=== PATIENT | male | born 1990 | race African-American/Black ===

== ENCOUNTER 2019-01-04 10:32 | Inpatient (IN) | payer MEDICAID ==
[~2019-01-04] VITALS: Ht 177.8 cm; Wt 85.3 kg
--- NOTE | 2019-01-04 10:47 | NUR ---
ED Nurse Note: PT WALKED IN TO ER TODAY FROM HOME. AOX4. PT C/O RIGHT LOWER GUM PAIN, 6/10 X LAST NIGHT. PT DENIES ANY DRAINAGE OR BLEEDING. ON ASSESSMENT, OBVIOUS SWELLING NOTED TO GUM. PT ALSO FEBRILE - ORAL TEMP 101.4F. DR BO AWARE. PT STATES HE TOOK AN ANTIBIOTIC AND NORCO PRIOR TO COMING IN TODAY BUT ISN'T SURE OF WHICH SPECIFIC ANTIBIOTIC.
[2019-01-04 10:50] VITALS: BP 154/86
[2019-01-04] MEDS ORDERED: Isovue-300 100ml vial INJ PRN ×2 (11:00→12:30)
[2019-01-04] MEDS ORDERED: Clindamycin 600mg 50 ML IVPB ONE (11:00)
[2019-01-04 11:20] LABS: HEMATOCRIT 53.4 % (42.0-52.0); LYMPHOCYTES % (AUTO) 8.3 % (20.0-45.0); MEAN CORPUSCULAR VOLUME 88 FL (80-99); MONOCYTES % (AUTO) 8.3 % (1.0-10.0); NEUTROPHILS % (AUTO) 81.4 % (45.0-75.0); PLATELET COUNT 302 K/UL (150-450); RED CELL DISTRIBUTION WIDTH 12.8 % (11.6-14.8); WHITE BLOOD COUNT 15.7 K/UL (4.8-10.8)
[2019-01-04 11:33] LABS: ANION GAP 11 mmol/L (5-15); BLOOD UREA NITROGEN 18 mg/dL (7-18); CALCIUM 9.9 MG/DL (8.5-10.1); CARBON DIOXIDE 31 MMOL/L (21-32); CHLORIDE 97 MMOL/L (98-107); CREATININE 1.6 MG/DL (0.55-1.30); POTASSIUM 3.4 MMOL/L (3.5-5.1); SODIUM 139 MMOL/L (136-145)
[2019-01-04 11:38] LABS: ALANINE AMINOTRANSFERASE 25 U/L (12-78); ALBUMIN 4.7 G/DL (3.4-5.0); ALKALINE PHOSPHATASE 71 U/L (46-116); ASPARTATE AMINO TRANSFERASE 15 U/L (15-37); BILIRUBIN,TOTAL 0.9 MG/DL (0.2-1.0)
[2019-01-04 11:41] LABS: INR 1.1 (0.9-1.1)
--- NOTE | 2019-01-04 11:43 | NUR ---
ED Nurse Note: RADIOLOGY CALLED FOR CT. PER DR. BO, NO CONTRAST DUE TO CREATININE. RADIOLOGY INFORMED.
--- NOTE | 2019-01-04 12:05 | NUR ---
ED Nurse Note: PT TO CT VIA WHEELCHAIR.
--- NOTE | 2019-01-04 12:45 | NUR ---
ED Nurse Note: PT. CAME BACK FROM CT. PT. VOMITED DURING CT AND REPORTED THAT IT WAS THE SMOOTHIE HE HAD EARLIER. NOTIFIED
--- NOTE | 2019-01-04 13:04 | Emergency Room Report ---
History of Present Illness General Chief Complaint: Toothache Source: Patient Present Illness HPI Patient presents emergency department today complaint acute onset of right jaw pain. Patient states that he has had pain for a couple days with progressive became worse today. There are acute onset of fever today. He is unable to open his mouth fully and has had episodes of vomiting. Patient denies any chest pain shortness of breath. No other complaints are noted. Symptoms noted to be moderate to severe. No other modifying factors. No other associated signs and symptoms. No other complaints were noted. Allergies: Coded Allergies: No Known Allergies (Unverified , 01/04/19) Patient History Past Medical History: none Past Surgical History: none Pertinent Family History: none Social History: Denies: smoking, alcohol use, drug use Reviewed Nursing Documentation: PMH: Agreed; PSxH: Agreed Nursing Documentation-PMH Past Medical History: No Stated History Review of Systems All Other Systems: negative except mentioned in HPI Physical Exam Vital Signs Date Time Temp Pulse Resp B/P (MAP) Pulse Ox O2 Delivery O2 Flow Rate FiO2 01/04/19 10:40 101.5 112 20 160/91 (114) 97 Room Air Sp02 EP Interpretation: reviewed, normal General Appearance: alert, moderate distress Head: atraumatic Eyes: bilateral eye normal inspection ENT: hearing grossly normal, normal voice, other - Right lower jaw dental caries with fullness in the submandibular area Neck: full range of motion, supple, no bony tend, tender - Right submandibular area with fullness Respiratory: normal inspection, lungs clear, normal breath sounds, no respiratory distress, no retraction, no wheezing Cardiovascular #1: regular rate, rhythm, no edema Gastrointestinal: normal inspection, normal bowel sounds, non tender, soft, no guarding, no hernia Genitourinary: no CVA tenderness Musculoskeletal: normal inspection, back normal, normal range of motion Neurologic: normal inspection, alert, responsive, speech normal Psychiatric: normal inspection, judgement/insight normal, mood/affect normal Skin: no rash Medical Decision Making Diagnostic Impression: Primary Impression: Dental abscess Additional Impressions: Mandibular abscess Fever ER Course Patient presents emergency department today complaining of right mandibular pain. Patient states that he started with a dental pain now it seems to be spreading and he has a fever. Symptoms noted to be severe. Differential diagnosis include abscess, cellulitis, viral syndrome, [place] angina just name a few. Given the severity of the patient's presentation I felt this is a highly complex patient. This patient required extensive workup. Patient's laboratory work-up shows elevated white blood cell count. Patient was given IV antibiotics. Patient will be admitted for further treatment. Case was discussed with maxillofacial surgeon Dr. El for consultation. Case was discussed with Dr. Raji Mora for admission. Labs Test 01/04/19 11:10 White Blood Count 15.7 K/UL (4.8-10.8) Red Blood Count 6.10 M/UL (4.70-6.10) Hemoglobin 18.0 G/DL (14.2-18.0) Hematocrit 53.4 % (42.0-52.0) Mean Corpuscular Volume 88 FL (80-99) Mean Corpuscular Hemoglobin 29.5 PG (27.0-31.0) Mean Corpuscular Hemoglobin Concent 33.7 G/DL (32.0-36.0) Red Cell Distribution Width 12.8 % (11.6-14.8) Platelet Count 302 K/UL (150-450) Mean Platelet Volume 6.5 FL (6.5-10.1) Neutrophils (%) (Auto) 81.4 % (45.0-75.0) Lymphocytes (%) (Auto) 8.3 % (20.0-45.0) Monocytes (%) (Auto) 8.3 % (1.0-10.0) Eosinophils (%) (Auto) 0.0 % (0.0-3.0) Basophils (%) (Auto) 2.0 % (0.0-2.0) Prothrombin Time 11.6 SEC (9.30-11.50) Prothromb Time International Ratio 1.1 (0.9-1.1) Activated Partial Thromboplast Time 28 SEC (23-33) Sodium Level 139 MMOL/L (136-145) Potassium Level 3.4 MMOL/L (3.5-5.1) Chloride Level 97 MMOL/L (98-107) Carbon Dioxide Level 31 MMOL/L (21-32) Anion Gap 11 mmol/L (5-15) Blood Urea Nitrogen 18 mg/dL (7-18) Creatinine 1.6 MG/DL (0.55-1.30) Estimat Glomerular Filtration Rate > 60 mL/min (>60) Glucose Level 110 MG/DL (74-106) Calcium Level 9.9 MG/DL (8.5-10.1) Total Bilirubin 0.9 MG/DL (0.2-1.0) Aspartate Amino Transf (AST/SGOT) 15 U/L (15-37) Alanine Aminotransferase (ALT/SGPT) 25 U/L (12-78) Alkaline Phosphatase 71 U/L (46-116) Total Protein 9.4 G/DL (6.4-8.2) Albumin 4.7 G/DL (3.4-5.0) Globulin 4.7 g/dL Albumin/Globulin Ratio 1.0 (1.0-2.7) Last Vital Signs Date Time Temp Pulse Resp B/P (MAP) Pulse Ox O2 Delivery O2 Flow Rate FiO2 01/04/19 10:50 101.4 98 18 154/86 98 Room Air Status: improved Disposition: ADMITTED INPATIENT Condition: Serious Referrals: NOT CHOSEN IPA/,REFERRING (PCP) Burton De Paz MD Jan 04, 2019 13:04
--- NOTE | 2019-01-04 13:21 | Diagnostic Imaging Report ---
Indication: Right perimandibular/facial pain and swelling Technique: Continuous helical transaxial imaging of the maxillofacial structures obtained before and after intravenous contrast administration. Coronal 2-D reformats were also obtained. Study obtained in a Siemens sensation [address] Total Dose length Product (DLP): 755.[address] Dose Index Volume (CTDIvol): 28.19 mGy Comparison: None Findings: There is approximately 3 x 0.5 x 0.9 cm abscess (3 cm dimension is parallel to the long axis of the body of the mandible) containing low attenuation fluid and a small focus of air just lateral and adjacent to the body of the right mandible. This is likely odontogenic in origin given its location. There is surrounding soft tissue swelling and subcutaneous edema with skin thickening indicative of cellulitis. The right clavicle mucosa is also moderately thick. Parapharyngeal space is normal. There is normal appearance of the visualized pharyngeal mucosal airway including the epiglottis and aryepiglottic folds, remainder of the subglottic airway and larynx. Subglottic airway appears normal. There is no neck abscess. Some inflammatory some individual nodes are noted. There is mucosal thickening within the ethmoid and sphenoid sinus consistent with mild sinusitis. The orbits are unremarkable. IMPRESSION: 3 x 0.5 x 0.9 cm right perimandibular abscess, likely odontogenic in origin. 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 Mild sinusitis Findings discussed with Dr. Burton De Paz in the emergency department at 1:15 PM 01/04/2019
[2019-01-04 13:55] VITALS: BP 148/82
[2019-01-04] MEDS ORDERED: Acetaminophen 500mg (ES) tab ORAL ONE ×2 (13:58→14:00)
[2019-01-04] MEDS ORDERED: Lidocaine 1% 10mg/ml/Epi 0.005mg/ml 30ml vial INJ ONE ×2 (14:30→14:33)
--- NOTE | 2019-01-04 14:30 | NUR ---
ED Nurse Note: DR MERCADO AT BEDSIDE FOR I&D.
--- NOTE | 2019-01-04 14:31 | Consultation ---
Consult Note Consult Note 28 yr old male with no PMh with 3 days hx of right sided facial swelling presents to the ED with complaint of tooth pain No issues with breathing, eating, swallowing, can handle secretions WBC is 15.7, febrile, Denies any PMH, PSH, NKDA Laboratory Tests Test 01/04/19 11:10 White Blood Count 15.7 K/UL (4.8-10.8) H Red Blood Count 6.10 M/UL (4.70-6.10) Hemoglobin 18.0 G/DL (14.2-18.0) Hematocrit 53.4 % (42.0-52.0) H Mean Corpuscular Volume 88 FL (80-99) Mean Corpuscular Hemoglobin 29.5 PG (27.0-31.0) Mean Corpuscular Hemoglobin Concent 33.7 G/DL (32.0-36.0) Red Cell Distribution Width 12.8 % (11.6-14.8) Platelet Count 302 K/UL (150-450) Mean Platelet Volume 6.5 FL (6.5-10.1) Neutrophils (%) (Auto) 81.4 % (45.0-75.0) H Lymphocytes (%) (Auto) 8.3 % (20.0-45.0) L Monocytes (%) (Auto) 8.3 % (1.0-10.0) Eosinophils (%) (Auto) 0.0 % (0.0-3.0) Basophils (%) (Auto) 2.0 % (0.0-2.0) Prothrombin Time 11.6 SEC (9.30-11.50) H Prothromb Time International Ratio 1.1 (0.9-1.1) Activated Partial Thromboplast Time 28 SEC (23-33) Sodium Level 139 MMOL/L (136-145) Potassium Level 3.4 MMOL/L (3.5-5.1) L Chloride Level 97 MMOL/L (98-107) L Carbon Dioxide Level 31 MMOL/L (21-32) Anion Gap 11 mmol/L (5-15) Blood Urea Nitrogen 18 mg/dL (7-18) Creatinine 1.6 MG/DL (0.55-1.30) H Estimat Glomerular Filtration Rate > 60 mL/min (>60) Glucose Level 110 MG/DL (74-106) H Calcium Level 9.9 MG/DL (8.5-10.1) Total Bilirubin 0.9 MG/DL (0.2-1.0) Aspartate Amino Transf (AST/SGOT) 15 U/L (15-37) Alanine Aminotransferase (ALT/SGPT) 25 U/L (12-78) Alkaline Phosphatase 71 U/L (46-116) Total Protein 9.4 G/DL (6.4-8.2) H Albumin 4.7 G/DL (3.4-5.0) Globulin 4.7 g/dL Albumin/Globulin Ratio 1.0 (1.0-2.7) CT scan shows a 3 cm right mandibular vestibular abscess associated with tooth # 30 PE'; AOx3 right sided facial swelling, Palpable right mandible inferior border EOMI, PERRL, Nose normal, Ears normal Swelling at the right mandibular vestibular region with carious tooth #30 FOM Soft NT ND, Can move tongue freely CN V, VII intact BL A/P 28 yr old male with right mandibular vestibular abscess I&D bedside under LA IV Abx Unasyn 3g Q6H Discharge with Augmentin 875mg BID x 7 days Soft food diet and progress as tolerated Follow up information given to patient Luis Eduardo Deshpande DDS Jan 04, 2019 14:31
[2019-01-04] MEDS ORDERED: Ampicillin/Sulbactam Sod 3 GM in NS 110 ML IVPB ONE (14:45)
[2019-01-04] MEDS ORDERED: NKM (15:48)
--- NOTE | 2019-01-04 15:49 | NUR ---
ED Nurse Note: [facility] CALLED FOR PT REPORT. REPORT GIVEN TO SAEID SEALS. RN READY TO ACCEPT PT. PT TAKEN UP TO [facility] VIA GURNEY WITH ALL BELONGINGS. VSS.
--- NOTE | 2019-01-04 16:30 | NUR ---
NURSE NOTES: Patient arrived on unit via wheelchair. Assisted to hospital bed without incident. Patient is AOx4. Stable. Complains of 7/10 pain on right jaw. Will administer pain medication as ordered. Patient oriented to room, unit, and call light. Patient encouraged to use call light for assistance, verbalized understanding. Patient in bed in locked and lowest position with call light within reach. Will continue to monitior.
[2019-01-04] MEDS ORDERED: DiphenhydrAMINE 50mg/ml Inj IVP PRN (17:00)
[2019-01-04] MEDS ORDERED: Morphine Sulfate 2mg/ml Inj(IV/IM USE ONLY) IVP PRN (17:00)
--- NOTE | 2019-01-04 17:00 | NUR ---
NURSE NOTES: All admission orders given by Dr. Carrero read back and carried out.
--- NOTE | 2019-01-04 17:10 | NUR ---
NURSE NOTES: Patient denies pain and does not ask for pain medication at this time. Patient does not want to eat food. Dinner tray given to patient, will encourage patient to eat.
--- NOTE | 2019-01-04 19:30 | NUR ---
HAND-OFF: Report given to aPul BREAUX. Patient is stable.
[2019-01-04 21:00] VITALS: BP 175/99
--- NOTE | 2019-01-04 21:24 | NUR ---
NURSE NOTES: Received report from AM RN Areli. Patient is resting comfortably in bed. No SOB. Blood pressure 175/99mmHg, MD Carrero notified. Temperature 101.5 F and WBCs elevated. , MD Linda Ruvalcaba notified. Will continue to monitor.
--- NOTE | 2019-01-04 23:30 | Consultation ---
DATE OF CONSULTATION: 01/04/2019 INFECTIOUS DISEASE CONSULTATION CONSULTING PHYSICIAN: Varun Ruvalcaba M.D. PRIMARY ATTENDING PHYSICIAN: Raji Carrero M.D. REASON FOR CONSULT: Perimandibular abscess, facial cellulitis. HISTORY OF PRESENT ILLNESS: The patient is a 28-year-old male, admitted today from home complaining of right lower jaw pain that is worse today and also developed fever. The patient had fever of 101.9 in the ER, has leukocytosis of 15.7. PAST MEDICAL HISTORY: Insignificant. He has a history of dental problem. ALLERGIES: No known drug allergies. MEDICATIONS: Sodium chloride, Tylenol, gets a dose of clindamycin. SOCIAL HISTORY: The patient is single. Denies alcohol, drug abuse, or smoking. REVIEW OF SYSTEMS: Fever, dental pain, difficulty of eating food, difficulty of opening mouth. No cough. No chest pain. No problem passing urine. PHYSICAL EXAMINATION: VITAL SIGNS: temperature 101.9, pulse 97, and blood pressure 148/82. GENERAL APPEARANCE: Seems to be well developed. HEAD AND NECK: Poor dental hygiene with some dental caries, swelling in the right lower face. HEART: Normal rate. LUNGS: Clear. ABDOMEN: Soft, nontender. EXTREMITIES: He has no edema. LABORATORY AND DIAGNOSTIC DATA: WBC 15.7, hemoglobin 18, hematocrit 52.4, and platelets 302,000. Sodium 139, potassium 3.4, chloride 97, bicarbonate 31, BUN 18, creatinine 1.6, glucose 110. Maxillofacial CT scan showed right perimandibular abscess, right face cellulitis odontogenic in origin with associated cellulitis of soft tissue, and mild sinusitis. IMPRESSION: 1. Sepsis with leukocytosis with a fever. 2. Perimandibular abscess, likely from dental origin. 3. Facial cellulitis. 4. Acute kidney disease. RECOMMENDATIONS: Continue antibiotic treatment with Unasyn. We will follow surgical recommendations. We will check for HIV tests. At the end of my exam, I thank Dr. Carrero, for involving me in the care of this patient. Varun Ruvalcaba M.D. DR: RENETTA JOB#: [id number] CC: PADMA
[2019-01-05] VITALS: BP 146/77
[2019-01-05] MEDS: Ampicillin/Sulbactam Sod 3 GM in NS 110 ML IVPB SCH ×4 (00:10→18:18)
--- NOTE | 2019-01-05 03:00 | History and Physical Report ---
DATE OF ADMISSION: 01/04/2019 HISTORY OF PRESENT ILLNESS: The patient comes for azotemia, perimandibular abscess with cellulitis of soft tissue, also has fever. The patient is being admitted for drainage of the abscess as well as for IV antibiotics. Complains of chills and fever and pain around the teeth. PAST MEDICAL HISTORY: None. PAST SURGICAL HISTORY: None. ALLERGIES: None. MEDICATIONS: None. FAMILY HISTORY: Noncontributory. SOCIAL HISTORY: Denies history of smoking, alcohol, or illicit drugs. REVIEW OF SYSTEMS: HEENT: Denies headaches. Does have tooth pain. PULMONARY: Denies shortness of breath. Denies cough. CARDIOVASCULAR: Denies chest pain or orthopnea. GASTROINTESTINAL: Denies nausea, vomiting, diarrhea. EXTREMITIES: Denies pain. CENTRAL NERVOUS SYSTEM: Denies change in vision or speech pattern. PHYSICAL EXAMINATION: VITAL SIGNS: Temperature is , blood pressure of 132/76. HEENT: PERRLA. Does have swelling on the teeth. NECK: Supple. CHEST: Clear to auscultation. CARDIOVASCULAR: Regular rate and rhythm. No murmurs or extra sounds. GASTROINTESTINAL: Soft, nontender, nondistended. No organomegaly. EXTREMITIES: No edema. NEUROLOGIC: Moves all four extremities. Reflexes equal on both sides. Does have swelling around the feet. LABORATORY DATA: WBC of 15.7, hemoglobin 18, platelets of 302,000. Sodium 139, potassium 3.4, BUN of 18, creatinine 0.6, glucose of 110. ASSESSMENT AND PLAN: Perimandibular abscess. Basically, is going to consult the patient for the I and D as well as Dr. Varun Ruvalcaba for IV antibiotics as well as Dr. Ontiveros for elevated blood pressure. Raji Carrero M.D. DR: CHANI JOB#: [id number] CC:
[2019-01-05 04:00] VITALS: BP 136/71
[2019-01-05 06:46] LABS: BASOPHILS % (AUTO) 1.8 % (0.0-2.0); EOSINOPHILS % (AUTO) 0.2 % (0.0-3.0); HEMOGLOBIN 16.1 G/DL (14.2-18.0); LYMPHOCYTES % (AUTO) 14.5 % (20.0-45.0); MEAN CORPUSCULAR VOLUME 89 FL (80-99); MONOCYTES % (AUTO) 11.7 % (1.0-10.0); NEUTROPHILS % (AUTO) 71.8 % (45.0-75.0); PLATELET COUNT 257 K/UL (150-450); RED CELL DISTRIBUTION WIDTH 11.5 % (11.6-14.8); WHITE BLOOD COUNT 13.3 K/UL (4.8-10.8)
--- NOTE | 2019-01-05 07:17 | NUR ---
NURSE NOTES:bedside rounds done,pt awake a/o x4,room air,no c/o pain.iv site patent.will continue plan of care.
[2019-01-05 07:46] LABS: ANION GAP 6 mmol/L (5-15); BLOOD UREA NITROGEN 14 mg/dL (7-18); CALCIUM 9.5 MG/DL (8.5-10.1); CARBON DIOXIDE 32 MMOL/L (21-32); CHLORIDE 101 MMOL/L (98-107); CREATININE 1.5 MG/DL (0.55-1.30); POTASSIUM 4.3 MMOL/L (3.5-5.1); SODIUM 139 MMOL/L (136-145)
[2019-01-05 08:00] VITALS: BP 133/81
--- NOTE | 2019-01-05 09:31 | NUR ---
NURSE NOTES:c/o throbbing pain on right jaw 9/10,medicated with morphine iv,with afforded relief after 30 minutes.
--- NOTE | 2019-01-05 10:17 | Consultation ---
Consult Note Consult Note asked to eval for elevated cr and high BP Patient presents emergency department today complaint acute onset of right jaw pain. Patient states that he has had pain for a couple days with progressive became worse today. There are acute onset of fever today. He is unable to open his mouth fully and has had episodes of vomiting. Patient denies any chest pain shortness of breath. No other complaints are noted. Symptoms noted to be moderate to severe. No other modifying factors. No other associated signs and symptoms. No other complaints were noted. Allergies: Coded Allergies: No Known Allergies (Unverified , 01/04/19) interviewed examined data reviewed . Assessment/Plan 28 yr old male with right mandibular vestibular abscess elevated Cr: Renal Failure- Dehydration HTN Urine studies Hydrate BP in check Per orders Sunny Ontiveros MD Jan 05, 2019 10:17
[2019-01-05] MEDS: D5NS 1,000 ML IV SCH ×2 (11:06→21:20)
[2019-01-05 12:00] VITALS: BP 130/70
--- NOTE | 2019-01-05 12:00 | NUR ---
NURSE NOTES:tolerating clear liquid diet,unable to open his mouth fully,but claims no difficulty of swallowing.
[2019-01-05] MEDS ORDERED: NS 275ml ONE (12:41)
[2019-01-05] MEDS ORDERED: Tubing IV Secondary IV ONE (12:41)
--- NOTE | 2019-01-05 15:00 | NUR ---
NURSE NOTES:ambulating in formerly [facility],[place].
[2019-01-05 15:19] LABS: APPEARANCE,URINE CLEAR; BILIRUBIN, URINE NEGATIVE (NEGATIVE); COLOR,URINE PALE YELLOW; GLUCOSE, URINE (UA) NEGATIVE (NEGATIVE); KETONES,URINE 1+ (NEGATIVE); LEUKOCYTE ESTERASE ,URINE NEGATIVE (NEGATIVE); NITRITE,URINE NEGATIVE (NEGATIVE); PH,URINE 7 (4.5-8.0); PROTEIN,URINE NEGATIVE (NEGATIVE); UROBILINOGEN,URINE 1 MG/DL (0.0-1.0)
[2019-01-05 16:00] VITALS: BP 148/86
--- NOTE | 2019-01-05 17:13 | Infectious Diseases Prog Note ---
Assessment/Plan Assessment/Plan IMPRESSION: 1. Sepsis with leukocytosis with a fever. 2. Perimandibular abscess, likely from dental origin. s/p I&D 3. Facial cellulitis. 4. Acute kidney disease. RECOMMENDATIONS: Continue antibiotic treatment with Unasyn At time of discharge PO Augmentin Subjective ROS Limited/Unobtainable: No Constitutional: Reports: other - feels better, feverisimproving HEENT: Reports: other - pain in right lower jaw Gastrointestinal/Abdominal: Reports: other - on liquid diet Genitourinary: Reports: no symptoms Allergies: Coded Allergies: No Known Allergies (Unverified , 01/04/19) Objective Vital Signs Last 24 Hour Vital Signs Date Time Temp Pulse Resp B/P (MAP) Pulse Ox O2 Delivery O2 Flow Rate FiO2 01/05/19 16:00 99.8 88 18 148/86 (106) 98 01/05/19 12:00 97.5 90 20 130/70 (90) 97 01/05/19 11:06 86 133/81 01/05/19 08:00 99.7 86 18 133/81 (98) 97 01/05/19 07:17 Room Air 01/05/19 04:00 99.6 82 18 136/71 (92) 99 01/05/19 00:00 98.6 82 19 146/77 (100) 97 01/04/19 22:45 98.6 01/04/19 22:11 175/99 01/04/19 21:00 101.5 94 20 175/99 (124) 97 01/04/19 21:00 Room Air Height (Feet): 5 Height (Inches): 10.00 Weight (Pounds): 188 General Appearance: no acute distress HEENT: mucous membranes moist, other - ulcer near fisrt molar in lower jaw Cardiovascular: normal rate Abdomen: soft, non tender Extremities: no edema Neurologic/Psychiatric: alert, oriented x 3, responsive Laboratory Tests Test 01/05/19 05:50 01/05/19 14:51 White Blood Count 13.3 K/UL (4.8-10.8) H Red Blood Count 5.40 M/UL (4.70-6.10) Hemoglobin 16.1 G/DL (14.2-18.0) Hematocrit 48.0 % (42.0-52.0) Mean Corpuscular Volume 89 FL (80-99) Mean Corpuscular Hemoglobin 29.9 PG (27.0-31.0) Mean Corpuscular Hemoglobin Concent 33.7 G/DL (32.0-36.0) Red Cell Distribution Width 11.5 % (11.6-14.8) L Platelet Count 257 K/UL (150-450) Mean Platelet Volume 7.2 FL (6.5-10.1) Neutrophils (%) (Auto) 71.8 % (45.0-75.0) Lymphocytes (%) (Auto) 14.5 % (20.0-45.0) L Monocytes (%) (Auto) 11.7 % (1.0-10.0) H Eosinophils (%) (Auto) 0.2 % (0.0-3.0) Basophils (%) (Auto) 1.8 % (0.0-2.0) Sodium Level 139 MMOL/L (136-145) Potassium Level 4.3 MMOL/L (3.5-5.1) Chloride Level 101 MMOL/L (98-107) Carbon Dioxide Level 32 MMOL/L (21-32) Anion Gap 6 mmol/L (5-15) Blood Urea Nitrogen 14 mg/dL (7-18) Creatinine 1.5 MG/DL (0.55-1.30) H Estimat Glomerular Filtration Rate > 60 mL/min (>60) Glucose Level 85 MG/DL (74-106) Calcium Level 9.5 MG/DL (8.5-10.1) HIV (1&2) Antibody Rapid Negative (NEGATIVE) Urine Color Pale yellow Urine Appearance Clear Urine pH 7 (4.5-8.0) Urine Specific [place] 1.010 (1.005-1.035) Urine Protein Negative (NEGATIVE) Urine Glucose (UA) Negative (NEGATIVE) Urine Ketones 1+ (NEGATIVE) H Urine Blood 2+ (NEGATIVE) H Urine Nitrite Negative (NEGATIVE) Urine Bilirubin Negative (NEGATIVE) Urine Urobilinogen 1 MG/DL (0.0-1.0) H Urine Leukocyte Esterase Negative (NEGATIVE) Urine RBC 0-2 /HPF (0 - 0) H Urine WBC 0-2 /HPF (0 - 0) Urine Squamous Epithelial Cells Few /LPF (NONE/OCC) Urine Bacteria Few /HPF (NONE) Urine Opiates Screen Negative (NEGATIVE) Urine Barbiturates Screen Negative (NEGATIVE) Phencyclidine (PCP) Screen Negative (NEGATIVE) Urine Amphetamines Screen Negative (NEGATIVE) Urine Benzodiazepines Screen Negative (NEGATIVE) Urine Cocaine Screen Negative (NEGATIVE) Urine Marijuana (THC) Screen Positive (NEGATIVE) H Current Medications Medications (Trade) Dose Ordered Sig/Joey Route PRN Reason Start Time Stop Time Status Last Admin Dose Admin Acetaminophen (Tylenol) 650 mg Q4H PRN ORAL Mild Pain/Temp > 100.5 01/04/19 17:00 02/03/19 16:59 01/04/19 22:15 Amlodipine Besylate (Norvasc) 5 mg DAILY ORAL 01/05/19 10:30 02/04/19 10:29 01/05/19 11:06 Ampicillin Sodium/ Sulbactam Sodium 3 gm/Sodium Chloride 110 ml @ 220 mls/hr Q6HR IVPB 01/05/19 00:00 01/12/19 00:00 01/05/19 11:09 Clonidine HCl (Catapres Tab) 0.1 mg Q6H PRN ORAL For High Blood Pressure 01/04/19 22:00 02/03/19 21:59 01/04/19 22:11 Dextrose/Sodium Chloride 1,000 ml @ 100 mls/hr Q10H IV 01/05/19 10:30 02/04/19 10:29 01/05/19 11:06 Diphenhydramine HCl (Benadryl) 25 mg Q6H PRN IVP Itching 01/04/19 17:00 02/03/19 16:59 Iopamidol (Isovue-300 100ml) 100 ml NOW PRN INJ Radiology Procedure 01/04/19 11:00 01/06/19 10:54 Iopamidol (Isovue-300 100ml) 100 ml NOW PRN INJ Radiology Procedure 01/04/19 12:30 01/06/19 12:24 Morphine Sulfate (Morphine Sulfate) 2 mg Q4H PRN IVP Severe Pain (Pain Scale 7-10) 01/04/19 17:00 01/11/19 16:59 01/05/19 09:31 Ondansetron HCl (Zofran) 4 mg Q6H PRN IVP Nausea & Vomiting 01/04/19 17:00 02/03/19 16:59 Varun Ruvalcaba MD Jan 05, 2019 17:13
--- NOTE | 2019-01-05 17:24 | NUR ---
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 101.9 HR 112 RR 20 B/P 169/91 [address]BC 15[address] FACIAL BONES=3 x 0.5 x 0.9 cm right perimandibular abscess, likely odontogenic in origin. Associated cellulitis of the right intramural director and facial soft tissues. IS: CLINDAMYCIN IV AMPICILLIN IV TYLENOL PO ADMITTED TO MED/SURG@ [id number] MED/SURG STATUS DCP RETURN HOME
--- NOTE | 2019-01-05 19:25 | NUR ---
HAND-OFF: Report given to KEELEY BREAUX/PENNY BREAUX.PT.STABLE..
[2019-01-05 20:00] VITALS: BP 125/86
--- NOTE | 2019-01-05 21:39 | General Progress Note ---
Assessment/Plan Problem List: (1) Mandibular abscess ICD Codes: M27.2 - Inflammatory conditions of jaws SNOMED: 869798795 (2) Dental abscess ICD Codes: K04.7 - Periapical abscess without sinus SNOMED: 767003890 (3) Fever ICD Codes: R50.9 - Fever, unspecified SNOMED: 572293989 Status: progressing Assessment/Plan: s/p drainage of fascial abscess iv antibiotic per id dr Smitha BERGER Limited/Unobtainable: Yes Allergies: Coded Allergies: No Known Allergies (Unverified , 01/04/19) Objective Last 24 Hour Vital Signs Date Time Temp Pulse Resp B/P (MAP) Pulse Ox O2 Delivery O2 Flow Rate FiO2 01/05/19 20:00 98.9 80 18 125/86 (99) 96 01/05/19 16:00 99.8 88 18 148/86 (106) 98 01/05/19 12:00 97.5 90 20 130/70 (90) 97 01/05/19 11:06 86 133/81 01/05/19 08:00 99.7 86 18 133/81 (98) 97 01/05/19 07:17 Room Air 01/05/19 04:00 99.6 82 18 136/71 (92) 99 01/05/19 00:00 98.6 82 19 146/77 (100) 97 01/04/19 22:45 98.6 01/04/19 22:11 175/99 Intake and Output 01/04/19 01/05/19 18:59 06:59 Intake Total 360 ml Balance 360 ml Intake Oral 360 ml # Voids 2 Laboratory Tests 01/05/19 05:50: White Blood Count 13.3H, Red Blood Count 5.40, Hemoglobin 16.1, Hematocrit 48.0 , Mean Corpuscular Volume 89, Mean Corpuscular Hemoglobin 29.9, Mean Corpuscular Hemoglobin Concent 33.7, Red Cell Distribution Width 11.5L, Platelet Count 257, Mean Platelet Volume 7.2, Neutrophils (%) (Auto) 71.8, Lymphocytes (%) (Auto) 14.5L, Monocytes (%) (Auto) 11.7H, Eosinophils (%) (Auto ) 0.2, Basophils (%) (Auto) 1.8, Sodium Level 139, Potassium Level 4.3, Chloride Level 101, Carbon Dioxide Level 32, Anion Gap 6, Blood Urea Nitrogen 14 , Creatinine 1.5H, Estimat Glomerular Filtration Rate > 60, Glucose Level 85, Calcium Level 9.5, HIV (1&2) Antibody Rapid Negative 01/05/19 14:51: Urine Color Pale yellow, Urine Appearance Clear, Urine pH 7, Urine Specific [place] 1.010, Urine Protein Negative, Urine Glucose (UA) Negative, Urine Ketones 1+H, Urine Blood 2+H, Urine Nitrite Negative, Urine Bilirubin Negative, Urine Urobilinogen 1H, Urine Leukocyte Esterase Negative, Urine RBC 0-2H, Urine WBC 0-2, Urine Squamous Epithelial Cells Few, Urine Bacteria Few, Urine Opiates Screen Negative, Urine Barbiturates Screen Negative, Phencyclidine (PCP) Screen Negative, Urine Amphetamines Screen Negative, Urine Benzodiazepines Screen Negative, Urine Cocaine Screen Negative, Urine Marijuana (THC) Screen PositiveH Height (Feet): 5 Height (Inches): 10.00 Weight (Pounds): 188 Neck: supple Cardiovascular: normal rate Respiratory/Chest: lungs clear Abdomen: soft Raji Carrero MD Jan 05, 2019 21:39
[2019-01-06] VITALS (7 sets, daily range): BP systolic 118–154; BP diastolic 71–83
[2019-01-06] MEDS: Ampicillin/Sulbactam Sod 3 GM in NS 110 ML IVPB SCH ×5 (00:06→23:44)
--- NOTE | 2019-01-06 05:03 | NUR ---
NURSE NOTE: Pt is A/Ox4 with stable vital signs. Pt endorses pain score of 6/10 but does not want his PRN pain meds. Call salas within reach and bed is locked in the lowest position. Pt does not endorse any complaints. Will continue to monitor.
[2019-01-06] MEDS: D5NS 1,000 ML IV SCH ×2 (05:40→17:37)
[2019-01-06 07:12] LABS: ALANINE AMINOTRANSFERASE 29 U/L (12-78); ALBUMIN 3.4 G/DL (3.4-5.0); ALBUMIN/GLOBULIN RATIO 0.9 (1.0-2.7); ALKALINE PHOSPHATASE 53 U/L (46-116); ANION GAP 4 mmol/L (5-15); ASPARTATE AMINO TRANSFERASE 18 U/L (15-37); BILIRUBIN,TOTAL 0.6 MG/DL (0.2-1.0); BLOOD UREA NITROGEN 9 mg/dL (7-18); CALCIUM 9.1 MG/DL (8.5-10.1); CARBON DIOXIDE 32 MMOL/L (21-32); CHLORIDE 104 MMOL/L (98-107); CREATININE 1.4 MG/DL (0.55-1.30); GAMMA GLUTAMYL TRANSPEPTIDASE 49 U/L (5-85); PHOSPHORUS 2.8 MG/DL (2.5-4.9); POTASSIUM 3.7 MMOL/L (3.5-5.1); SODIUM 140 MMOL/L (136-145)
[2019-01-06 07:13] LABS: BASOPHILS % (AUTO) 1.2 % (0.0-2.0); EOSINOPHILS % (AUTO) 0.8 % (0.0-3.0); HEMATOCRIT 44.2 % (42.0-52.0); HEMOGLOBIN 15.1 G/DL (14.2-18.0); LYMPHOCYTES % (AUTO) 23.4 % (20.0-45.0); MEAN CORPUSCULAR VOLUME 87 FL (80-99); MONOCYTES % (AUTO) 12.4 % (1.0-10.0); NEUTROPHILS % (AUTO) 62.3 % (45.0-75.0); PLATELET COUNT 235 K/UL (150-450); RED BLOOD COUNT 5.06 M/UL (4.70-6.10); RED CELL DISTRIBUTION WIDTH 11.1 % (11.6-14.8); WHITE BLOOD COUNT 9.6 K/UL (4.8-10.8)
--- NOTE | 2019-01-06 07:27 | NUR ---
HAND-OFF: Report given to SAEID Cerrato.
--- NOTE | 2019-01-06 07:37 | NUR ---
NURSE NOTES: pt laying in bed with partner. Follow up call will be made with Dr Carrero due to pt request for Ensure. Clear liquid diet explained. No verbalizations of pain at this time
--- NOTE | 2019-01-06 07:43 | NUR ---
NURSE NOTES: Dr Horn phoned due to pt request for ensure, currently on liquid diet.
--- NOTE | 2019-01-06 08:07 | NUR ---
NURSE NOTES: Pt is on clear liqiud diet, Dr trace mendenhall for Ensure per pt request
--- NOTE | 2019-01-06 09:12 | Infectious Diseases Prog Note ---
Assessment/Plan Assessment/Plan IMPRESSION: 1. Sepsis with leukocytosis with a fever. 2. Perimandibular abscess, likely from dental origin. s/p I&D 3. Facial cellulitis. 4. Acute kidney disease. RECOMMENDATIONS: Continue antibiotic treatment with Unasyn At time of discharge switch to PO Augmentin Subjective ROS Limited/Unobtainable: No Constitutional: Reports: no symptoms HEENT: Reports: other - facial pain Respiratory: Reports: no symptoms Cardiovascular: Reports: no symptoms Gastrointestinal/Abdominal: Reports: no symptoms, other - on liquid diet Genitourinary: Reports: no symptoms Allergies: Coded Allergies: No Known Allergies (Unverified , 01/04/19) Objective Vital Signs Last 24 Hour Vital Signs Date Time Temp Pulse Resp B/P (MAP) Pulse Ox O2 Delivery O2 Flow Rate FiO2 01/06/19 04:15 98.6 78 20 137/83 (101) 95 01/06/19 00:00 98.7 80 20 145/83 (103) 95 01/05/19 21:00 Room Air 01/05/19 20:00 98.9 80 18 125/86 (99) 96 01/05/19 16:00 99.8 88 18 148/86 (106) 98 01/05/19 12:00 97.5 90 20 130/70 (90) 97 01/05/19 11:06 86 133/81 Height (Feet): 5 Height (Inches): 10.00 Weight (Pounds): 188 General Appearance: no acute distress HEENT: mucous membranes moist, other - R facial swelling, bleeding from gum of mollar teeth in R lower jaw Cardiovascular: normal rate Abdomen: soft, non tender Extremities: no edema Neurologic/Psychiatric: alert, oriented x 3, responsive Laboratory Tests Test 01/05/19 14:51 01/06/19 05:45 Urine Color Pale yellow Urine Appearance Clear Urine pH 7 (4.5-8.0) Urine Specific [place] 1.010 (1.005-1.035) Urine Protein Negative (NEGATIVE) Urine Glucose (UA) Negative (NEGATIVE) Urine Ketones 1+ (NEGATIVE) H Urine Blood 2+ (NEGATIVE) H Urine Nitrite Negative (NEGATIVE) Urine Bilirubin Negative (NEGATIVE) Urine Urobilinogen 1 MG/DL (0.0-1.0) H Urine Leukocyte Esterase Negative (NEGATIVE) Urine RBC 0-2 /HPF (0 - 0) H Urine WBC 0-2 /HPF (0 - 0) Urine Squamous Epithelial Cells Few /LPF (NONE/OCC) Urine Bacteria Few /HPF (NONE) Urine Opiates Screen Negative (NEGATIVE) Urine Barbiturates Screen Negative (NEGATIVE) Phencyclidine (PCP) Screen Negative (NEGATIVE) Urine Amphetamines Screen Negative (NEGATIVE) Urine Benzodiazepines Screen Negative (NEGATIVE) Urine Cocaine Screen Negative (NEGATIVE) Urine Marijuana (THC) Screen Positive (NEGATIVE) H White Blood Count 9.6 K/UL (4.8-10.8) Red Blood Count 5.06 M/UL (4.70-6.10) Hemoglobin 15.1 G/DL (14.2-18.0) Hematocrit 44.2 % (42.0-52.0) Mean Corpuscular Volume 87 FL (80-99) Mean Corpuscular Hemoglobin 29.9 PG (27.0-31.0) Mean Corpuscular Hemoglobin Concent 34.2 G/DL (32.0-36.0) Red Cell Distribution Width 11.1 % (11.6-14.8) L Platelet Count 235 K/UL (150-450) Mean Platelet Volume 6.6 FL (6.5-10.1) Neutrophils (%) (Auto) 62.3 % (45.0-75.0) Lymphocytes (%) (Auto) 23.4 % (20.0-45.0) Monocytes (%) (Auto) 12.4 % (1.0-10.0) H Eosinophils (%) (Auto) 0.8 % (0.0-3.0) Basophils (%) (Auto) 1.2 % (0.0-2.0) Sodium Level 140 MMOL/L (136-145) Potassium Level 3.7 MMOL/L (3.5-5.1) Chloride Level 104 MMOL/L (98-107) Carbon Dioxide Level 32 MMOL/L (21-32) Anion Gap 4 mmol/L (5-15) L Blood Urea Nitrogen 9 mg/dL (7-18) Creatinine 1.4 MG/DL (0.55-1.30) H Estimat Glomerular Filtration Rate > 60 mL/min (>60) Glucose Level 108 MG/DL (74-106) H Uric Acid 5.3 MG/DL (2.6-7.2) Calcium Level 9.1 MG/DL (8.5-10.1) Phosphorus Level 2.8 MG/DL (2.5-4.9) Magnesium Level 2.3 MG/DL (1.8-2.4) Total Bilirubin 0.6 MG/DL (0.2-1.0) Gamma Glutamyl Transpeptidase 49 U/L (5-85) Aspartate Amino Transf (AST/SGOT) 18 U/L (15-37) Alanine Aminotransferase (ALT/SGPT) 29 U/L (12-78) Alkaline Phosphatase 53 U/L (46-116) C-Reactive Protein, Quantitative 9.9 mg/dL (0.00-0.90) H Total Protein 7.2 G/DL (6.4-8.2) Albumin 3.4 G/DL (3.4-5.0) Globulin 3.8 g/dL Albumin/Globulin Ratio 0.9 (1.0-2.7) L Current Medications Medications (Trade) Dose Ordered Sig/Joey Route PRN Reason Start Time Stop Time Status Last Admin Dose Admin Acetaminophen (Tylenol) 650 mg Q4H PRN ORAL Mild Pain/Temp > 100.5 01/04/19 17:00 02/03/19 16:59 01/04/19 22:15 Amlodipine Besylate (Norvasc) 5 mg DAILY ORAL 01/05/19 10:30 02/04/19 10:29 01/05/19 11:06 Ampicillin Sodium/ Sulbactam Sodium 3 gm/Sodium Chloride 110 ml @ 220 mls/hr Q6HR IVPB 01/05/19 00:00 01/12/19 00:00 01/06/19 05:40 Clonidine HCl (Catapres Tab) 0.1 mg Q6H PRN ORAL For High Blood Pressure 01/04/19 22:00 02/03/19 21:59 01/04/19 22:11 Dextrose/Sodium Chloride 1,000 ml @ 100 mls/hr Q10H IV 01/05/19 10:30 02/04/19 10:29 01/06/19 05:40 Diphenhydramine HCl (Benadryl) 25 mg Q6H PRN IVP Itching 01/04/19 17:00 02/03/19 16:59 Iopamidol (Isovue-300 100ml) 100 ml NOW PRN INJ Radiology Procedure 01/04/19 11:00 01/06/19 10:54 Iopamidol (Isovue-300 100ml) 100 ml NOW PRN INJ Radiology Procedure 01/04/19 12:30 01/06/19 12:24 Morphine Sulfate (Morphine Sulfate) 2 mg Q4H PRN IVP Severe Pain (Pain Scale 7-10) 01/04/19 17:00 01/11/19 16:59 01/05/19 09:31 Ondansetron HCl (Zofran) 4 mg Q6H PRN IVP Nausea & Vomiting 01/04/19 17:00 02/03/19 16:59 Varun Ruvalcaba MD Jan 06, 2019 09:12
--- NOTE | 2019-01-06 09:19 | NUR ---
NURSE NOTES: Pt was not given Norvasc bp less than 120 systolic. Per pt bp has been elevated. States he was too busy to go to the Dentist, he has only one day off. Some presence of facial swelling as presence of blood t rt side of mouth. No odor or discharge noted to area.
--- NOTE | 2019-01-06 09:23 | NUR ---
NURSE NOTES: Dr Cedeno here to see pt written order given
--- NOTE | 2019-01-06 11:48 | Nephrology Progress Note ---
Assessment/Plan Problem List: (1) Renal failure (ARF), acute on chronic Assessment: partly dehydration (2) Mandibular abscess (3) HTN (hypertension) (4) Tetrahydrocannabinol (THC) use disorder, mild, abuse Assessment 28 yr old male with right mandibular vestibular abscess elevated Cr: Renal Failure- Dehydration HTN Plan Urine studies / tox screen Hydrate BP in check Per orders Subjective ROS Limited/Unobtainable: No Constitutional: Reports: malaise Objective Objective Last 24 Hour Vital Signs Date Time Temp Pulse Resp B/P (MAP) Pulse Ox O2 Delivery O2 Flow Rate FiO2 01/06/19 09:00 70 118/80 01/06/19 09:00 Room Air 01/06/19 08:00 98.6 70 20 118/80 (93) 98 01/06/19 04:15 98.6 78 20 137/83 (101) 95 01/06/19 00:00 98.7 80 20 145/83 (103) 95 01/05/19 21:00 Room Air 01/05/19 20:00 98.9 80 18 125/86 (99) 96 01/05/19 16:00 99.8 88 18 148/86 (106) 98 01/05/19 12:00 97.5 90 20 130/70 (90) 97 Intake and Output 01/05/19 01/06/19 19:00 07:00 Intake Total 1110 ml 800 ml Balance 1110 ml 800 ml Intake Oral 300 ml IV Total 810 ml 800 ml # Voids 2 5 Current Medications Medications (Trade) Dose Ordered Sig/Joey Route PRN Reason Start Time Stop Time Status Last Admin Dose Admin Acetaminophen (Tylenol) 650 mg Q4H PRN ORAL Mild Pain/Temp > 100.5 01/04/19 17:00 02/03/19 16:59 01/04/19 22:15 Amlodipine Besylate (Norvasc) 5 mg DAILY ORAL 01/05/19 10:30 02/04/19 10:29 01/05/19 11:06 Ampicillin Sodium/ Sulbactam Sodium 3 gm/Sodium Chloride 110 ml @ 220 mls/hr Q6HR IVPB 01/05/19 00:00 01/12/19 00:00 01/06/19 11:32 Clonidine HCl (Catapres Tab) 0.1 mg Q6H PRN ORAL For High Blood Pressure 01/04/19 22:00 02/03/19 21:59 01/04/19 22:11 Dextrose/Sodium Chloride 1,000 ml @ 100 mls/hr Q10H IV 01/05/19 10:30 02/04/19 10:29 01/06/19 05:40 Diphenhydramine HCl (Benadryl) 25 mg Q6H PRN IVP Itching 01/04/19 17:00 02/03/19 16:59 Iopamidol (Isovue-300 100ml) 100 ml NOW PRN INJ Radiology Procedure 01/04/19 12:30 01/06/19 12:24 Morphine Sulfate (Morphine Sulfate) 2 mg Q4H PRN IVP Severe Pain (Pain Scale 7-10) 01/04/19 17:00 01/11/19 16:59 01/05/19 09:31 Ondansetron HCl (Zofran) 4 mg Q6H PRN IVP Nausea & Vomiting 01/04/19 17:00 02/03/19 16:59 Laboratory Tests 01/05/19 14:51: Urine Color Pale yellow, Urine Appearance Clear, Urine pH 7, Urine Specific [place] 1.010, Urine Protein Negative, Urine Glucose (UA) Negative, Urine Ketones 1+H, Urine Blood 2+H, Urine Nitrite Negative, Urine Bilirubin Negative, Urine Urobilinogen 1H, Urine Leukocyte Esterase Negative, Urine RBC 0-2H, Urine WBC 0-2, Urine Squamous Epithelial Cells Few, Urine Bacteria Few, Urine Opiates Screen Negative, Urine Barbiturates Screen Negative, Phencyclidine (PCP) Screen Negative, Urine Amphetamines Screen Negative, Urine Benzodiazepines Screen Negative, Urine Cocaine Screen Negative, Urine Marijuana (THC) Screen PositiveH 01/06/19 05:45: White Blood Count 9.6, Red Blood Count 5.06, Hemoglobin 15.1, Hematocrit 44.2, Mean Corpuscular Volume 87, Mean Corpuscular Hemoglobin 29.9, Mean Corpuscular Hemoglobin Concent 34.2, Red Cell Distribution Width 11.1L, Platelet Count 235, Mean Platelet Volume 6.6, Neutrophils (%) (Auto) 62.3, Lymphocytes (%) (Auto) 23.4, Monocytes (%) (Auto) 12.4H, Eosinophils (%) (Auto) 0.8, Basophils (%) ( Auto) 1.2, Sodium Level 140, Potassium Level 3.7, Chloride Level 104, Carbon Dioxide Level 32, Anion Gap 4L, Blood Urea Nitrogen 9, Creatinine 1.4H, Estimat Glomerular Filtration Rate > 60, Glucose Level 108H, Uric Acid 5.3, Calcium Level 9.1, Phosphorus Level 2.8, Magnesium Level 2.3, Total Bilirubin 0.6, Gamma Glutamyl Transpeptidase 49, Aspartate Amino Transf (AST/SGOT) 18, Alanine Aminotransferase (ALT/SGPT) 29, Alkaline Phosphatase 53, C-Reactive Protein, Quantitative 9.9H, Total Protein 7.2, Albumin 3.4, Globulin 3.8, Albumin/ Globulin Ratio 0.9L Height (Feet): 5 Height (Inches): 10.00 Weight (Pounds): 188 General Appearance: no apparent distress EENT: other - right face swollen Cardiovascular: normal rate Respiratory/Chest: decreased breath sounds Abdomen: soft Sunny Ontiveros MD Jan 06, 2019 11:48
--- NOTE | 2019-01-06 14:37 | NUR ---
NURSE NOTES: Antibiotics given, no signs of possible dermatological side effects. Denies possible nausea or vomiting related to use. Per pt pain level is a 6 1-10 scale, yet refused pain medication. " Pain medication does work for me, since I was a kid does not work.
--- NOTE | 2019-01-06 15:24 | NUR ---
NURSE NOTES: Specimen cup given to pt directions provided to urinate into toilet hold and then urinate in cup, filling up cup is not needed . Verbalized understanding.
[2019-01-06] MEDS ORDERED: D5NS 1000ml IV ONE (16:40)
[2019-01-06 17:42] LABS: APPEARANCE,URINE CLEAR; BILIRUBIN, URINE NEGATIVE (NEGATIVE); COLOR,URINE PALE YELLOW; GLUCOSE, URINE (UA) NEGATIVE (NEGATIVE); KETONES,URINE NEGATIVE (NEGATIVE); LEUKOCYTE ESTERASE ,URINE NEGATIVE (NEGATIVE); NITRITE,URINE NEGATIVE (NEGATIVE); PH,URINE 8 (4.5-8.0); PROTEIN,URINE NEGATIVE (NEGATIVE); UROBILINOGEN,URINE NORMAL MG/DL (0.0-1.0)
--- NOTE | 2019-01-06 19:57 | NUR ---
HAND-OFF: Report given to Aiden BREAUX.
--- NOTE | 2019-01-06 22:45 | General Progress Note ---
Assessment/Plan Problem List: (1) Mandibular abscess ICD Codes: M27.2 - Inflammatory conditions of jaws SNOMED: 227081341 (2) Dental abscess ICD Codes: K04.7 - Periapical abscess without sinus SNOMED: 577469682 (3) Fever ICD Codes: R50.9 - Fever, unspecified SNOMED: [id number] Status: progressing Assessment/Plan: s/p drainage of fascial abscess iv antibiotic dc planning no fever clinically improving Subjective ROS Limited/Unobtainable: Yes Allergies: Coded Allergies: No Known Allergies (Unverified , 01/04/19) Objective Last 24 Hour Vital Signs Date Time Temp Pulse Resp B/P (MAP) Pulse Ox O2 Delivery O2 Flow Rate FiO2 01/06/19 21:00 Room Air 01/06/19 20:00 97.4 78 18 154/71 (98) 98 01/06/19 16:00 98.7 76 18 125/80 (95) 01/06/19 12:00 98.2 77 18 148/71 (96) 01/06/19 09:00 70 118/80 01/06/19 09:00 Room Air 01/06/19 08:00 98.6 70 20 118/80 (93) 98 01/06/19 04:15 98.6 78 20 137/83 (101) 95 01/06/19 00:00 98.7 80 20 145/83 (103) 95 Intake and Output 01/05/19 01/06/19 18:59 06:59 Intake Total 1010 ml 900 ml Balance 1010 ml 900 ml Intake Oral 300 ml IV Total 710 ml 900 ml # Voids 2 5 Laboratory Tests 01/06/19 05:45: White Blood Count 9.6, Red Blood Count 5.06, Hemoglobin 15.1, Hematocrit 44.2, Mean Corpuscular Volume 87, Mean Corpuscular Hemoglobin 29.9, Mean Corpuscular Hemoglobin Concent 34.2, Red Cell Distribution Width 11.1L, Platelet Count 235, Mean Platelet Volume 6.6, Neutrophils (%) (Auto) 62.3, Lymphocytes (%) (Auto) 23.4, Monocytes (%) (Auto) 12.4H, Eosinophils (%) (Auto) 0.8, Basophils (%) ( Auto) 1.2, Sodium Level 140, Potassium Level 3.7, Chloride Level 104, Carbon Dioxide Level 32, Anion Gap 4L, Blood Urea Nitrogen 9, Creatinine 1.4H, Estimat Glomerular Filtration Rate > 60, Glucose Level 108H, Uric Acid 5.3, Calcium Level 9.1, Phosphorus Level 2.8, Magnesium Level 2.3, Total Bilirubin 0.6, Gamma Glutamyl Transpeptidase 49, Aspartate Amino Transf (AST/SGOT) 18, Alanine Aminotransferase (ALT/SGPT) 29, Alkaline Phosphatase 53, C-Reactive Protein, Quantitative 9.9H, Total Protein 7.2, Albumin 3.4, Globulin 3.8, Albumin/ Globulin Ratio 0.9L 01/06/19 16:50: Urine Color Pale yellow, Urine Appearance Clear, Urine pH 8, Urine Specific [place] 1.010, Urine Protein Negative, Urine Glucose (UA) Negative, Urine Ketones Negative, Urine Blood Negative, Urine Nitrite Negative, Urine Bilirubin Negative, Urine Urobilinogen Normal, Urine Leukocyte Esterase Negative, Urine RBC 0-2H, Urine WBC 0-2, Urine Squamous Epithelial Cells Occasional, Urine Bacteria Few, Urine Random Sodium 77 Height (Feet): 5 Height (Inches): 10.00 Weight (Pounds): 188 Neck: supple Cardiovascular: normal rate Respiratory/Chest: lungs clear Abdomen: soft Raji Carrero MD Jan 06, 2019 22:44
[2019-01-07] MEDS: D5NS 1,000 ML IV SCH (03:00)
--- NOTE | 2019-01-07 03:05 | NUR ---
NURSE NOTE: Pt is A/Ox4 with stable VS. Significant other is at the bedside. Orders reviewed. Pt endorses a pain score of 6/10 inside his right jaw but refuses the suggestion of taking the prescribed PRN meds. Call salas is within reach. Pt does not endorse any complaints. Will continue to monitor.
[2019-01-07 03:55] VITALS: BP 124/70
[2019-01-07] MEDS: Ampicillin/Sulbactam Sod 3 GM in NS 110 ML IVPB SCH ×2 (05:39→12:00)
[2019-01-07 06:41] LABS: BASOPHILS % (AUTO) 1.5 % (0.0-2.0); EOSINOPHILS % (AUTO) 3.3 % (0.0-3.0); HEMATOCRIT 42.8 % (42.0-52.0); HEMOGLOBIN 14.8 G/DL (14.2-18.0); MEAN CORPUSCULAR VOLUME 87 FL (80-99); MONOCYTES % (AUTO) 12.8 % (1.0-10.0); NEUTROPHILS % (AUTO) 53.4 % (45.0-75.0); PLATELET COUNT 272 K/UL (150-450); RED BLOOD COUNT 4.91 M/UL (4.70-6.10); RED CELL DISTRIBUTION WIDTH 10.8 % (11.6-14.8); WHITE BLOOD COUNT 7.5 K/UL (4.8-10.8)
[2019-01-07 07:18] LABS: ALANINE AMINOTRANSFERASE 32 U/L (12-78); ALBUMIN 3.3 G/DL (3.4-5.0); ALBUMIN/GLOBULIN RATIO 0.9 (1.0-2.7); ALKALINE PHOSPHATASE 52 U/L (46-116); ASPARTATE AMINO TRANSFERASE 19 U/L (15-37); BILIRUBIN,TOTAL 0.6 MG/DL (0.2-1.0); BLOOD UREA NITROGEN 8 mg/dL (7-18); CALCIUM 8.9 MG/DL (8.5-10.1); CARBON DIOXIDE 29 MMOL/L (21-32); CHLORIDE 106 MMOL/L (98-107); CREATININE 1.2 MG/DL (0.55-1.30); PHOSPHORUS 2.9 MG/DL (2.5-4.9)
--- NOTE | 2019-01-07 07:20 | NUR ---
HAND-OFF: Report given to SAEID Cerrato.
[2019-01-07 07:22] LABS: POTASSIUM 3.3 MMOL/L (3.5-5.1); SODIUM 132 MMOL/L (136-145)
[2019-01-07 08:00] VITALS: BP 119/72
[2019-01-07 09:00] VITALS: BP 119/78
--- NOTE | 2019-01-07 09:01 | NUR ---
NURSE NOTES: Blood pressure is below 120 provided with potassium, 20 meq 2 to labs potassium level 3.[address] Horn gave orders for potassium 20 meq po x 1. Dr Carrero cleared pt for discharge gave instructions to discharge pt if cleared by infectious disease, Jaren Cedeno. gave instructions to follow up with maxillary odontologist in one week .
--- NOTE | 2019-01-07 09:06 | NUR ---
NURSE NOTES: Pt is experiencing pain 3 1-10 scale refused pain medication refused ice pack. Pt informed of Dr davies
--- NOTE | 2019-01-07 09:55 | Nephrology Progress Note ---
Assessment/Plan Problem List: (1) Renal failure (ARF), acute on chronic Assessment: partly dehydration (2) Mandibular abscess (3) HTN (hypertension) (4) Tetrahydrocannabinol (THC) use disorder, mild, abuse Assessment 28 yr old male with right mandibular vestibular abscess elevated Cr: Renal Failure- Dehydration HTN Plan DC IV Fluid K supplement ? DC on PO ABx ? previously: Urine studies / tox screen Hydrate BP in check Per orders Subjective ROS Limited/Unobtainable: No Objective Objective Last 24 Hour Vital Signs Date Time Temp Pulse Resp B/P (MAP) Pulse Ox O2 Delivery O2 Flow Rate FiO2 01/07/19 09:00 68 119/78 01/07/19 03:55 98.3 68 18 124/70 (88) 98 01/06/19 23:45 98.3 77 18 133/79 (97) 98 01/06/19 21:00 Room Air 01/06/19 20:00 97.4 78 18 154/71 (98) 98 01/06/19 16:00 98.7 76 18 125/80 (95) 01/06/19 12:00 98.2 77 18 148/71 (96) Intake and Output 01/06/19 01/07/19 19:00 07:00 Intake Total 1440 ml 1100 ml Balance 1440 ml 1100 ml Intake Oral 120 ml 400 ml IV Total 1320 ml 700 ml # Voids 1 Current Medications Medications (Trade) Dose Ordered Sig/Joey Route PRN Reason Start Time Stop Time Status Last Admin Dose Admin Acetaminophen (Tylenol) 650 mg Q4H PRN ORAL Mild Pain/Temp > 100.5 01/04/19 17:00 02/03/19 16:59 01/04/19 22:15 Amlodipine Besylate (Norvasc) 5 mg DAILY ORAL 01/05/19 10:30 02/04/19 10:29 01/05/19 11:06 Ampicillin Sodium/ Sulbactam Sodium 3 gm/Sodium Chloride 110 ml @ 220 mls/hr Q6HR IVPB 01/05/19 00:00 01/12/19 00:00 01/07/19 05:39 Clonidine HCl (Catapres Tab) 0.1 mg Q6H PRN ORAL For High Blood Pressure 01/04/19 22:00 02/03/19 21:59 01/04/19 22:11 Diphenhydramine HCl (Benadryl) 25 mg Q6H PRN IVP Itching 01/04/19 17:00 02/03/19 16:59 Morphine Sulfate (Morphine Sulfate) 2 mg Q4H PRN IVP Severe Pain (Pain Scale 7-10) 01/04/19 17:00 01/11/19 16:59 01/05/19 09:31 Ondansetron HCl (Zofran) 4 mg Q6H PRN IVP Nausea & Vomiting 01/04/19 17:00 02/03/19 16:59 Potassium Chloride (K-Dur) 20 meq ONCE ORAL 01/07/19 08:30 01/07/19 10:00 01/07/19 09:00 Potassium Chloride (K-Dur) 40 meq TWICE A DAY ORAL 01/07/19 10:00 02/06/19 09:59 Laboratory Tests 01/06/19 16:50: Urine Color Pale yellow, Urine Appearance Clear, Urine pH 8, Urine Specific [place] 1.010, Urine Protein Negative, Urine Glucose (UA) Negative, Urine Ketones Negative, Urine Blood Negative, Urine Nitrite Negative, Urine Bilirubin Negative, Urine Urobilinogen Normal, Urine Leukocyte Esterase Negative, Urine RBC 0-2H, Urine WBC 0-2, Urine Squamous Epithelial Cells Occasional, Urine Bacteria Few, Urine Random Sodium 77 01/07/19 05:20: White Blood Count 7.5, Red Blood Count 4.91, Hemoglobin 14.8, Hematocrit 42.8, Mean Corpuscular Volume 87, Mean Corpuscular Hemoglobin 30.2, Mean Corpuscular Hemoglobin Concent 34.6, Red Cell Distribution Width 10.8L, Platelet Count 272, Mean Platelet Volume 6.8, Neutrophils (%) (Auto) 53.4, Lymphocytes (%) (Auto) 29.0, Monocytes (%) (Auto) 12.8H, Eosinophils (%) (Auto) 3.3H, Basophils (%) ( Auto) 1.5, Sodium Level 132L, Potassium Level 3.3L, Chloride Level 106, Carbon Dioxide Level 29, Blood Urea Nitrogen 8, Creatinine 1.2, Estimat Glomerular Filtration Rate > 60, Glucose Level 103, Calcium Level 8.9, Phosphorus Level 2.9 , Magnesium Level 2.2, Total Bilirubin 0.6, Aspartate Amino Transf (AST/SGOT) 19 , Alanine Aminotransferase (ALT/SGPT) 32, Alkaline Phosphatase 52, C-Reactive Protein, Quantitative 5.1H, Total Protein 7.1, Albumin 3.3L, Globulin 3.8, Albumin/Globulin Ratio 0.9L Height (Feet): 5 Height (Inches): 10.00 Weight (Pounds): 188 General Appearance: other - face swelling down Respiratory/Chest: lungs clear Abdomen: soft Sunny Ontiveros MD Jan 07, 2019 09:55
--- NOTE | 2019-01-07 11:04 | Infectious Diseases Prog Note ---
Assessment/Plan Assessment/Plan IMPRESSION: 1. Sepsis with leukocytosis with a fever. resolved 2. Perimandibular abscess, likely from dental origin. s/p I&D 3. Facial cellulitis. 4. Acute kidney disease.resolving RECOMMENDATIONS: Continue antibiotic treatment with Unasyn At time of discharge switch to PO Augmentin Agree with discharge to home Subjective ROS Limited/Unobtainable: No Constitutional: Reports: other - feels better HEENT: Reports: other - decreased face swelling Respiratory: Reports: no symptoms Gastrointestinal/Abdominal: Reports: no symptoms Genitourinary: Reports: no symptoms Allergies: Coded Allergies: No Known Allergies (Unverified , 01/04/19) Objective Vital Signs Last 24 Hour Vital Signs Date Time Temp Pulse Resp B/P (MAP) Pulse Ox O2 Delivery O2 Flow Rate FiO2 01/07/19 09:00 68 119/78 01/07/19 03:55 98.3 68 18 124/70 (88) 98 01/06/19 23:45 98.3 77 18 133/79 (97) 98 01/06/19 21:00 Room Air 01/06/19 20:00 97.4 78 18 154/71 (98) 98 01/06/19 16:00 98.7 76 18 125/80 (95) 01/06/19 12:00 98.2 77 18 148/71 (96) Height (Feet): 5 Height (Inches): 10.00 Weight (Pounds): 188 General Appearance: no acute distress HEENT: mucous membranes moist, other - decreased facial swelling Respiratory/Chest: lungs clear Cardiovascular: normal rate Abdomen: soft, non tender Extremities: no edema Skin: no rash Neurologic/Psychiatric: alert, oriented x 3, responsive Laboratory Tests Test 01/06/19 16:50 01/07/19 05:20 Urine Color Pale yellow Urine Appearance Clear Urine pH 8 (4.5-8.0) Urine Specific Kaplan 1.010 (1.005-1.035) Urine Protein Negative (NEGATIVE) Urine Glucose (UA) Negative (NEGATIVE) Urine Ketones Negative (NEGATIVE) Urine Blood Negative (NEGATIVE) Urine Nitrite Negative (NEGATIVE) Urine Bilirubin Negative (NEGATIVE) Urine Urobilinogen Normal MG/DL (0.0-1.0) Urine Leukocyte Esterase Negative (NEGATIVE) Urine RBC 0-2 /HPF (0 - 0) H Urine WBC 0-2 /HPF (0 - 0) Urine Squamous Epithelial Cells Occasional /LPF Urine Bacteria Few /HPF (NONE) Urine Random Sodium 77 mmol/L (20-110) White Blood Count 7.5 K/UL (4.8-10.8) Red Blood Count 4.91 M/UL (4.70-6.10) Hemoglobin 14.8 G/DL (14.2-18.0) Hematocrit 42.8 % (42.0-52.0) Mean Corpuscular Volume 87 FL (80-99) Mean Corpuscular Hemoglobin 30.2 PG (27.0-31.0) Mean Corpuscular Hemoglobin Concent 34.6 G/DL (32.0-36.0) Red Cell Distribution Width 10.8 % (11.6-14.8) L Platelet Count 272 K/UL (150-450) Mean Platelet Volume 6.8 FL (6.5-10.1) Neutrophils (%) (Auto) 53.4 % (45.0-75.0) Lymphocytes (%) (Auto) 29.0 % (20.0-45.0) Monocytes (%) (Auto) 12.8 % (1.0-10.0) H Eosinophils (%) (Auto) 3.3 % (0.0-3.0) H Basophils (%) (Auto) 1.5 % (0.0-2.0) Sodium Level 132 MMOL/L (136-145) L Potassium Level 3.3 MMOL/L (3.5-5.1) L Chloride Level 106 MMOL/L (98-107) Carbon Dioxide Level 29 MMOL/L (21-32) Blood Urea Nitrogen 8 mg/dL (7-18) Creatinine 1.2 MG/DL (0.55-1.30) Estimat Glomerular Filtration Rate > 60 mL/min (>60) Glucose Level 103 MG/DL (74-106) Calcium Level 8.9 MG/DL (8.5-10.1) Phosphorus Level 2.9 MG/DL (2.5-4.9) Magnesium Level 2.2 MG/DL (1.8-2.4) Total Bilirubin 0.6 MG/DL (0.2-1.0) Aspartate Amino Transf (AST/SGOT) 19 U/L (15-37) Alanine Aminotransferase (ALT/SGPT) 32 U/L (12-78) Alkaline Phosphatase 52 U/L (46-116) C-Reactive Protein, Quantitative 5.1 mg/dL (0.00-0.90) H Total Protein 7.1 G/DL (6.4-8.2) Albumin 3.3 G/DL (3.4-5.0) L Globulin 3.8 g/dL Albumin/Globulin Ratio 0.9 (1.0-2.7) L Current Medications Medications (Trade) Dose Ordered Sig/Joey Route PRN Reason Start Time Stop Time Status Last Admin Dose Admin Acetaminophen (Tylenol) 650 mg Q4H PRN ORAL Mild Pain/Temp > 100.5 01/04/19 17:00 02/03/19 16:59 01/04/19 22:15 Amlodipine Besylate (Norvasc) 5 mg DAILY ORAL 01/05/19 10:30 02/04/19 10:29 01/05/19 11:06 Ampicillin Sodium/ Sulbactam Sodium 3 gm/Sodium Chloride 110 ml @ 220 mls/hr Q6HR IVPB 01/05/19 00:00 01/12/19 00:00 01/07/19 05:39 Clonidine HCl (Catapres Tab) 0.1 mg Q6H PRN ORAL For High Blood Pressure 01/04/19 22:00 02/03/19 21:59 01/04/19 22:11 Diphenhydramine HCl (Benadryl) 25 mg Q6H PRN IVP Itching 01/04/19 17:00 02/03/19 16:59 Morphine Sulfate (Morphine Sulfate) 2 mg Q4H PRN IVP Severe Pain (Pain Scale 7-10) 01/04/19 17:00 01/11/19 16:59 01/05/19 09:31 Ondansetron HCl (Zofran) 4 mg Q6H PRN IVP Nausea & Vomiting 01/04/19 17:00 02/03/19 16:59 Potassium Chloride (K-Dur) 40 meq TWICE A DAY ORAL 01/07/19 10:00 02/06/19 09:59 Varun Ruvalcaba MD Jan 07, 2019 11:04
--- NOTE | 2019-01-07 14:26 | NUR ---
NURSE NOTES: here earlier in shift seen pt gave okay for discharge . Pt states he is new to area and would like to be discharged when his prescriptions comes
--- NOTE | 2019-01-07 14:30 | NUR ---
NURSE NOTES: Pt given medication discharge instructions provided in regards to symptoms to identify infection. Encouraged to follow up with dental care. Discharge instruction for dental abscess given. Educated on importance of completing antibiotic dose, even if symptoms improve. IV removed. Belongings in possession
[2019-01-07] MEDS ORDERED: Tubing IV Secondary IV ONE (14:35)
[2019-01-07] MEDS ORDERED: D5NS 1000ml IV ONE (14:35)
--- NOTE | 2019-01-09 09:00 | Discharge Summary ---
Discharge Summary Discharge Summary _ DATE OF ADMISSION: 01/04/2019 DATE OF DISCHARGE: 01/07/2019 DISCHARGED BY: Dr. Raij Mora CONSULTANTS: Dr. Varun Ontiveros BRIEF HOSPITAL COURSE: Patient is a 28-year-old male, who presented to ED for complaints of acute onset of right jaw pain. He stated he had pain for couple of days with progressive symptoms. He had acute onset of fever. He was unable to open mouth fully. He had episodes of vomiting. He denied any chest pain or shortness of breath. On evaluation at ED, blood pressure was elevated to 160/91, heart rate elevated to 112. He was febrile with temperature of 101.5 F. Blood work showed WBC elevated to 15.7. Hemoglobin 18, hematocrit 53. Electrolytes were normal. BUN 18, creatinine elevated to 1.6. CT of the facial bones showed 3 x 0.5 x 0.9 cm right perimandibular abscess, likely odontogenic in origin. There was associated cellulitis of the right vegetable thinner and facial soft tissue. He was started on IV antibiotics. He was then admitted for evaluation of dental abscess, acute kidney injury. Dr. Deshapnde was consulted. Patient had swelling of the right mandibular vestibular region with carious tooth #30. I&D was performed at bedside under local anesthesia. He was recommended soft food diet and advance as tolerated. ID was consulted. Patient was continued on Unasyn. CRP was elevated to 9.9. He had elevated creatinine. Kidney function was monitored. He was given IV hydration. Potassium was repleted. Urine toxicology was positive for marijuana. HIV screen negative. Patient eventually defervesced. Leukocytosis resolved. Kidney function normalized. He was eventually discharged home to continue p.o. antibiotic. FINAL DIAGNOSES: Sepsis with leukocytosis and fever, secondary to perimandibular abscess, from dental origin, status post I&D, resolved Facial cellulitis Acute on chronic renal failure, partly due to dehydration Hypertension THC abuse DISPOSITION: Patient was discharged home. DISCHARGE INSTRUCTIONS: Follow-up in a week. I have been assigned to complete a discharge summary on this account, I was not involved with the patient's management.--VALERIE Adrian Jacqueline Robles NP Jan 09, 2019 09:00
== END 2019-01-07 14:36 | disposition home or self-care (01) | DRG 720 ==
LOC: EMR 10:57 → 3E 15:28 → EDBEDREQ 15:51
PROC: 0C9XXZ0 Drainage of Lower Tooth, External Approach, Single (ICD-10-PCS; principal; 2019-01-04)
DX: A41.9 Sepsis, unspecified organism (principal); N17.9 Acute kidney failure, unspecified; K04.7 Periapical abscess without sinus; M27.2 Inflammatory conditions of jaws; L03.211 Cellulitis of face; I12.9 Hypertensive chronic kidney disease with stage 1 through stage 4 chronic kidney disease, or unspecified chronic kidney disease; N18.9 Chronic kidney disease, unspecified; F12.10 Cannabis abuse, uncomplicated; E86.0 Dehydration
CPT/HCPCS: 36415; 70486; 70488; 80048; 80053; 80307; 81001; 82962; 82977; 83735; 84100; 84300; 84550; 85025; 85610; 85730; 86140; 86703; 96361; 96365; 96367; 96375; 99285; J8499; S0077